=== PATIENT | male | born 1990 | race Caucasian/White ===

== ENCOUNTER 2022-09-08 09:11 | Outpatient (CLI) | payer SELFPAY ==
[2022-09-08 09:33] LABS: Hematocrit 33.9 % (42.0-52.0); Hemoglobin 10.7 g/dL (14.0-18.0); Mean Corpuscular HGB Conc 31.6 g/dl (32-36); Mean Corpuscular Hemoglobin 28.3 pg (26-34); Mean Corpuscular Volume 89.7 fl (80-100); Mean Platelet Volume 8.2 fl (7.4-10.4); Platelet Count Result 413 k/mm3 (150-375); Red Blood Count 3.78 M/mm3 (4.6-6.20); Red Cell Distribution Width 12.7 % (11.5-14.5); White Blood Count 6.7 K/mm3 (4.5-10.0)
[2022-09-08 09:59] LABS: Alanine Aminotransferase 14 U/L (6-50); Albumin Level 3.7 g/dL (3.5-5.1); Alkaline Phosphatase 93 U/L (38-126); Anion Gap 8 mmol/L (8-16); Aspartate Amino Transferase 20 U/L (17-59); Bilirubin,Total 0.2 mg/dL (0.2-1.3); Blood Urea Nitrogen 6 mg/dL (9-20); CRP 2.7 mg/dL (<1.0); Calcium 8.8 mg/dL (8.4-10.2); Carbon Dioxide 27 mmol/L (22-30); Chloride 103 mmol/L (98-107); Estimated Glomerular Filt Rate > 60; Glucose 104 mg/dL (65-110); Potassium 3.8 mmol/L (3.4-5.0); Sodium 138 mmol/L (137-145)
== END 2022-09-08 09:12 | disposition home or self-care (01) ==
LOC: ANHLAB 09:15
PROVIDERS: Visit Provider Nurse Practitioner
DX: R10.30 Lower abdominal pain, unspecified (principal); K62.5 Hemorrhage of anus and rectum; R19.7 Diarrhea, unspecified
CPT/HCPCS: 36415; 80053; 85027; 86140

== ENCOUNTER 2024-01-28 00:50 | Emergency (ER) | payer SELFPAY ==
[2024-01-28] VITALS (10 sets, daily range): BP systolic 110–124; BP diastolic 73–95; PULSE 78–101; RESP 8–19; TEMP 36.3; O2SAT 97–100
--- NOTE | ~2024-01-28 | XR_ITS ---
EXAMINATION: XR chest 2V DATE: 01/28/2024 01:10 INDICATION: Shortness of breath. TECHNIQUE: Frontal and lateral views of the chest were obtained. COMPARISON: None. FINDINGS: There is no pneumonia, pleural effusion, or pneumothorax. The heart size is normal. IMPRESSION: 1. No acute cardiopulmonary disease. Reviewed, dictated and finalized at location A. [employer]
--- NOTE | 2024-01-28 00:51 | ECG_ITS ---
Measurements Intervals [place] Rate: 88 P: 85 LA: 132 QRS: 17 QRSD: 99 T: 11 QT: 387 QTc: 470 Interpretive Statements SINUS RHYTHM BORDERLINE ST-T WAVE ABNORMALITY- ANTEROLAT/INF LEADS BORDERLINE ECG NO PREVIOUS ECG AVAILABLE FOR COMPARISON Electronically Signed On 01-28-2024 9:04:39 IT [employer] MANAGER by Fidel Fierro D.O.
[2024-01-28 01:06] LABS: Basophils Percent Auto 0.6 % (0.2-1.2); Eosinophils Absolute Auto 0.4 K/mm3 (0-0.3); Eosinophils Percent Auto 5.4 % (0-4.4); Hematocrit 44.1 % (42.0-52.0); Hemoglobin 14.5 g/dL (14.0-18.0); Immature Granulocyte Absolute 0.03 K/mm3 (0.00-0.031); Immature Granulocyte Percent A 0.4 % (0-0.5); Lymphocytes Absolute Auto 2.79 K/mm3 (0.9-3.2); Lymphocytes Percent Auto 38.4 % (18.3-44.2); Mean Corpuscular HGB Conc 32.9 g/dl (32-36); Mean Corpuscular Hemoglobin 29.2 pg (26-34); Mean Corpuscular Volume 88.9 fl (80-100); Mean Platelet Volume 8.4 fl (7.4-10.4); Monocytes Absolute Auto 0.5 K/mm3 (0.1-0.6); Neutrophils Absolute Auto 3.5 K/mm3 (1.3-6.7); Neutrophils Percent Auto 48.2 % (45.5-73.1); Platelet Count Result 280 k/mm3 (150-375); Red Blood Count 4.96 M/mm3 (4.6-6.20); Red Cell Distribution Width 11.8 % (11.5-14.5); White Blood Count 7.3 K/mm3 (4.5-10.0)
[2024-01-28 01:17] LABS: Alanine Aminotransferase 15 U/L (6-50); Albumin Level 4.5 g/dL (3.5-5.1); Alkaline Phosphatase 92 U/L (38-126); Anion Gap 10 mmol/L (8-16); Aspartate Amino Transferase 21 U/L (17-59); Bilirubin,Total 0.4 mg/dL (0.2-1.3); Blood Urea Nitrogen 9 mg/dL (9-20); Calcium 9.2 mg/dL (8.4-10.2); Carbon Dioxide 27 mmol/L (22-30); Chloride 101 mmol/L (98-107); Estimated CRCL calculation 82 ml/min; Estimated Glomerular Filt Rate > 60; Glucose 132 mg/dL (65-110); Potassium 3.2 mmol/L (3.4-5.0); Sodium 138 mmol/L (137-145)
--- NOTE | 2024-01-28 01:34 | ED.GENADULT ---
HPI - General Adult General Chief complaint: Shortness of Breath/Dyspnea Stated complaint: difficulty breathing Time Seen by Provider: 01/28/24 01:00 History of Present Illness HPI narrative: Patient is a 33-year-old gentleman who presents emergency department with chief complaint of shortness of breath. Patient reports that he has notice that he feels that he is not getting a good deep breath the patient reports it has been going on for earlier this evening with and reports that he may persist and reports that he is feeling though patient denies fever denies cough denies sore throat reports no peripheral edema Related Data Allergies Allergy/AdvReac Type Severity Reaction Status Date / Time No Known Allergies Allergy Verified 01/28/24 01:02 Review of Systems Review of Systems: A 10 system review of systems was completed on the patient and is negative except for what is stated in the HPI. Nursing and ancillary documentation was reviewed. [facility] Past Medical History Medical History Diarrhea External hemorrhoid Lower abdominal pain Rectal bleeding Social History Social History Smoking status: Never smoker Exam Narrative: GENERAL: Well-appearing, well-nourished, and in no acute distress. HEAD: Normocephalic, atraumatic. EYES: PERRLA and EOMI. ENT: Nares clear, no rhinorrhea or epistaxis. Mucous membranes moist. NECK: Supple. CHEST: Clear to auscultation. No respiratory distress. HEART: Regular rate and rhythm. No murmur heard. Normal peripheral pulses. ABDOMEN: Soft, nontender, nondistended, normal active bowel sounds. EXTREMITIES: Normal range of motion. No edema. SKIN: Warm, dry, no rash. NEURO: No focal deficits. Alert and oriented x3. PSYCH: Normal mood and affect. Course Vital Signs Vital signs: Vital Signs Pulse Rate 98 01/28/24 00:59 Pulse Oximetry 98 01/28/24 00:59 Oxygen Delivery Room Air 01/28/24 00:59 Temperature 36.3 C L 01/28/24 01:06 Pulse Rate 101 H 01/28/24 01:47 Respiratory Rate 9 L 01/28/24 01:47 Blood Pressure 119/89 01/28/24 01:33 Pulse Oximetry 97 01/28/24 02:03 Oxygen Delivery Room Air 01/28/24 02:03 Medical Decision Making MDM Narrative Medical decision making narrative: Differential diagnosis includes pneumonia, pneumothorax, pneumonitis, upper respiratory infection, PE, ACS, Chest x-ray showed no widened mediastinum no evidence of pneumothorax and no focal infiltrate. EKG showed no acute ischemic changes Laboratory studies were obtained the patient showed normal white blood cell count normal electrolytes negative troponin negative D-dimer negative BNP COVID flu and RSV were negative Patient received a nebulizer treatment and is feeling much better at this time Vital Signs Vital Signs: Vital Signs Pulse Rate 98 01/28/24 00:59 Pulse Oximetry 98 01/28/24 00:59 Oxygen Delivery Room Air 01/28/24 00:59 Temperature 36.3 C L 01/28/24 01:06 Pulse Rate 101 H 01/28/24 01:47 Respiratory Rate 9 L 01/28/24 01:47 Blood Pressure 119/89 01/28/24 01:33 Pulse Oximetry 97 01/28/24 02:03 Oxygen Delivery Room Air 01/28/24 02:03 Lab Data 01/28/24 01:00 01/28/24 01:00 Labs: Lab Results 01/28/24 01/28/24 01/28/24 Range/Units 01:00 01:03 02:23 WBC 7.3 (4.5-10.0) K/mm3 RBC 4.96 (4.6-6.20) M/mm3 Hgb 14.5 D (14.0-18.0) g/dL Hct 44.1 (42.0-52.0) % MCV 88.9 (80-100) fl MCH 29.2 (26-34) pg MCHC 32.9 (32-36) g/dl RDW 11.8 (11.5-14.5) % Plt Count 280 (150-375) k/mm3 MPV 8.4 (7.4-10.4) fl Immature Gran % (Auto) 0.4 (0-0.5) % Neut % (Auto) 48.2 (45.5-73.1) % Lymph % (Auto) 38.4 (18.3-44.2) % [place] % (Auto) 7.0 (2.6-8.5) % Eos % (Auto) 5.4 H (0-4.4) % Baso % (Auto) 0.6 (0.2-
[2024-01-28] MEDS: IPRATROPIUM 0.5 MG/ALBUTEROL SULFATE 2.5 MG AMPUL.NEB 3 ML INHALATION (01:44)
[2024-01-28 01:45] LABS: Influenza A QL RT-PCR Negative (Negative); Influenza B QL RT-PCR Negative (Negative); RSV RNA, RT-PCR Negative (Negative); SARS-CoV-2 RNA PCR Negative (Negative)
[2024-01-28 01:53] LABS: NT Pro B Type Natriuretic Pept 26 pg/mL (19.9-100); Troponin I < 0.012 ng/mL (0.000-0.034)
[2024-01-28 02:44] LABS: D Dimer 0.36 ug/mL (<0.48)
== END 2024-01-28 03:03 | disposition home or self-care (01) ==
PROVIDERS: Emergency Provider Emergency Medicine
DX: R06.00 Dyspnea, unspecified (principal); Z20.822 Contact with and (suspected) exposure to COVID-19
CPT/HCPCS: 36415; 71046; 80053; 83880; 84484; 85025; 85380; 87637; 93005; 94640; 99284